=== PATIENT | female | born 1985 | race Caucasian/White ===

== ENCOUNTER 2019-11-12 10:24 | Emergency (ER) | payer OTHER, SELFPAY | END 2019-11-12 10:46 | disposition home or self-care (01) | LOC: NAV ERS 10:24 | DX: K04.7 Periapical abscess without sinus (principal); F41.9 Anxiety disorder, unspecified; F31.9 Bipolar disorder, unspecified; F17.210 Nicotine dependence, cigarettes, uncomplicated | CPT/HCPCS: 99283 ==